=== PATIENT | female | born 1960 | race Caucasian/White ===

== ENCOUNTER 2023-12-13 14:59 | Outpatient (CLI) | payer OTHER, SELFPAY ==
--- NOTE | 2023-12-13 15:30 | MR_ITS ---
[address] [address] Phone:?[phone] Fax:?[phone] Referring Physician Information: Shanell Aguilar [address] [facility] [address] Phone:?[phone] Fax:?[phone] Patient:Alberto Mendez D.O.B:?1960 Sex:?Female Phone:?[phone] [facility] MRN:?[id number] Exam Date:?12/13/2023 EXAM: MRI of the LEFT KNEE, without contrast CLINICAL INFORMATION: Female, 63 years old, with left knee pain. INDICATION: Evaluate for meniscal tear. PRIOR SURGERY: None reported. PLAIN FILMS: Knee radiographs dated 11/30/2023. COMPARISONS: No prior MRIs available. TECHNICAL INFORMATION: Using a 1.5T MR scanner and a localizing surface coil: sagittals: PD, PDFS coronals: PD, T2FS axials: PD, PDFS SEDATION: None CONTRAST: None FINDINGS: Knee joint: Effusion: Small left knee effusion. Popliteal cyst: Small Johnson cyst, which appears to have ruptured superiorly. Loose bodies: None. Subcutaneous and extra-articular soft tissues: Unremarkable. Ligaments: ACL: Intact ACL anteromedial and posterolateral bundles, without sprain or tear. PCL: Intact PCL, without acute or chronic injury. MCL: Intact MCL superficial and deep layers, without injury. LCL: Intact LCL, without injury. Posterolateral corner: No posterolateral corner soft tissue injury. Popliteus, biceps femoris, iliotibial band, popliteofibular ligament and lateral gastrocnemius are intact. Posteromedial corner: No posteromedial corner soft tissue injury. Semimembranosus, pes anserine tendons and posterior oblique ligament are without injury, tendinopathy or bursitis. Extensor mechanism: Patellar tendon: Intact, without tendinopathy. Quadriceps tendon: Intact, without tendinopathy. Retinacula: Medial and lateral retinacula are intact. Fat pads: Moderate localized edema is present in the superolateral aspect of Hoffa's fat pad (sagittal PDFS series 6 image 19 and axial T2FS series 4 image 15). Medial compartment: Medial meniscus: Mixed apical free edge and undersurface horizontal/radial tearing extending from the apical free edge of the posterior horn to the periphery of the posterior root is present over a length of 1.7 cm (axial T2FS series 4 image 21 and sagittal PDFS series 6 images 7-11). This tear involves approximately 50% of the meniscal thickness. Meniscal extrusion measures 4 mm. No parameniscal cyst. Medial femoral condyle & tibial plateau: Broad-based grade II/III chondromalacia throughout the central, weightbearing aspect of the medial compartment, without reactive osseous changes. Lateral compartment: Lateral meniscus: Intrasubstance degeneration and low-grade partial tearing of the lateral meniscal posterior root is present over a length of 9 mm (sagittal PDFS series 6 images 14-16). No meniscal extrusion or parameniscal cyst. Apical free edge fraying of the body segment is also present. Lateral femoral condyle: No chondromalacia or osteochondral abnormality. Lateral tibial plateau: No chondromalacia or osteochondral abnormality. Patellofemoral joint: Patella: Broad-based grade II chondromalacia of the medial facet and median ridge, with minimal marginal osteophytosis. Trochlea: Broad-based mild grade II chondromalacia of the medial facet and central sulcus. Proximal tibiofibular joint: Unremarkable, without evidence of ligament sprain injury, joint effusion or adjacent marrow edema. Bones: No stress/occult fractures or other marrow edema/pathology. IMPRESSION: 1. Apical free edge and undersurface horizontal/radial tearing of the medial meniscus extending from the apical free edge of the posterior horn to the periphery of the posterior root over a length of 1.7 cm, with 4 mm of meniscal extrusion. 2. Mild osteoarthritis of the medial compartment. 3. Intrasubstance degeneration and low-grade partial tearing of the lateral meniscal posterior root measuring 9 mm. 4. Minimal osteoarthritis of the patellofemoral compartment. 5. Patellar tendon lateral femoral condyle friction syndrome. 6. Small knee joint effusion with a small Johnson cyst that appears to have ruptured superiorly. 7. No cruciate or collateral ligament sprain/tear. BC Electronically signed on 12/18/2023 2:18:00 PM by Alexis Resendiz M.D.
== END 2023-12-13 15:00 | disposition home or self-care (01) ==
LOC: MRI 15:01
PROVIDERS: PCP Family Medicine; Visit Provider Physician Assistant
DX: M25.562 Pain in left knee (principal); S83.222A Peripheral tear of medial meniscus, current injury, left knee, initial encounter; M17.12 Unilateral primary osteoarthritis, left knee; M25.462 Effusion, left knee
CPT/HCPCS: 73721

== ENCOUNTER 2025-06-02 06:57 | Day surgery (SDC) | payer OTHER, SELFPAY ==
[2025-06-02] VITALS (13 sets, daily range): BP systolic 88–150; BP diastolic 54–106; PULSE 49–67; RESP 16; TEMP 36.4–37; O2SAT 94–100; BMI 18.8
[2025-06-02] MEDS: SODIUM CHLORIDE 0.9 % (FLUSH) 10 ML SYRINGE IVF (07:22)
[2025-06-02] MEDS: LACTATED RINGERS 1000 ML 1,000 ML 100 ML IV ×2 (07:22→09:53)
--- NOTE | 2025-06-02 09:18 | SUR.OPER ---
PATIENT QUESTIONS ANSWERED SATISFACTORILY PREOPERATIVELY.? PATIENT BROUGHT TO OR #4 PER CART.? Patient positioned supine on OR # bed.? The perioperative?team supported arms bilaterally on arm boards.? Final approval of positioning by surgeon.? CONTINUOUS IRRIGATION OF THE LEFT KNEE DURING THE PROCEDURE WITH NACL.
[2025-06-02] MEDS: BUPIVACAINE 0.25% 30 ML INJECTION (09:20)
--- NOTE | 2025-06-02 09:29 | PM.ORPRC ---
Procedure Note Date of procedure: 06/02/25 Procedure: PREOPERATIVE DIAGNOSIS: Left knee medial and lateral meniscus tear POSTOPERATIVE DIAGNOSIS: Left knee medial and lateral meniscus tear NAME OF OPERATION: Left knee arthroscopic partial medial meniscectomy SURGEON: Tristen Aceves MD ADULT MANAGER: ALISON Dinh ANESTHESIA: Spinal ESTIMATED BLOOD LOSS: 0 mL COMPLICATIONS: None SPECIMENS: None DRAINS: None PREOPERATIVE ANTIBIOTICS: Ancef 1 gram INDICATIONS: The patient is a 64-year-old with a history of left knee medial pain. MRI scan is consistent with a medial and lateral meniscus tear. Despite appropriate nonoperative management, including activity modification, antiinflammatories, [id number] pain medication, bracing, physical therapy, and injections they continue to have pain and disability. Operative intervention was offered. The risks, benefits and expected outcomes were discussed in detail. These included but were not limited to: Infection, bleeding, injury to blood vessel or nerve, venous thromboembolism. All questions were answered to their satisfaction. PROCEDURE: Spinal anesthesia was administered. The patient was placed supine on the operating room table. The left lower extremity was prepped and draped in the usual sterile fashion. The limb was exsanguinated with the Humberto bandage. The pneumatic tourniquet was inflated to 300 mmHg. A standard anterolateral portal was established. The arthroscope was introduced. The working portal was established anteromedially. Diagnostic arthroscopy was performed with findings as follows: The suprapatellar pouch is normal. Articular surface on the patella shows diffuse grade 2/3 change. Articular surface on the trochlea is normal. The medial gutter is normal. The medial compartment shows diffuse grade 3 change on the medial femoral condyle, grade 2 change on the medial tibial plateau. The medial meniscus has a complex degenerative tear of the posterior horn, into the midbody. This consists of a radial tear from the leading edge of the posterior horn, nearly to the capsule. This essentially detach is the medial meniscus from the posterior tibia. However, the rest of the posterior horn is quite poor quality tissue. There is a horizontal cleavage tear of the posterior horn, into the midbody. The notch shows the ACL to be intact. The lateral compartment shows normal articular cartilage on the lateral femoral condyle and lateral tibial plateau. The lateral meniscus has some degenerative fraying of the leading edge of the midbody and posterior horn. The posterior root is intact. The lateral gutter is normal. The posterior horn of the medial meniscus was debrided to a stable base using a combination of sharon through both portals. Unstable chondral flaps on the medial femoral condyle and patella were debrided with the shaver. Arthroscopic instruments were removed, the portal sites were Steri-Stripped closed, the knee was infiltrated with 30 mL of 0.25% Marcaine without epinephrine. A dry dressing was applied, the tourniquet was released. Sponge and needle counts were correct x 2. The patient tolerated the procedure well. There were no apparent complications. They were carefully transferred to the hospital bed and taken to the postanesthesia care unit in satisfactory condition. PLAN: The patient will be discharged to home. They may weightbear as tolerates. Range of motion will be unrestricted. They will follow up in the office next week for a wound check.
--- NOTE | 2025-06-02 09:42 | P.ANES_ITS ---
Anesthesia Charges Start Date/Time Anesthesia Start Date: 06/02/25 Anesthesia Start Time: 08:32 Stop Date/Time Anesthesia Stop Date: 06/02/25 Anesthesia Stop Time: 09:34 Coding CPT Codes CPT Codes: ANESTH KNEE JOINT SURGERY - 48055 ([id number]) QK - ASSISTANT PROFESSOR SURGICAL TECHNOLOGY 2-4 CNCRNT ANES PROC, QX - COMMERCIAL REAL ESTATE MANAGER SVJohn W/ MED DIRECTION
--- NOTE | 2025-06-02 09:42 | W.ANESCHARGE ---
Anesthesia Charges Start Date/Time Anesthesia Start Date: 06/02/25 Anesthesia Start Time: 08:32 Stop Date/Time Anesthesia Stop Date: 06/02/25 Anesthesia Stop Time: 09:34 Coding CPT Codes CPT Codes: ANESTH KNEE JOINT SURGERY - 83972 ([id number]) QK - LINTING MACHINE OPERATOR 2-4 CNCRNT ANES PROC, QX - INSPECTOR PURCHASED PARTS SVJohn W/ MED DIRECTION
--- NOTE | 2025-06-02 10:43 | P.ANES_ITS ---
Anesthesia Charges Start Date/Time Anesthesia Start Date: 06/02/25 Anesthesia Start Time: 08:32 Stop Date/Time Anesthesia Stop Date: 06/02/25 Anesthesia Stop Time: 09:34 Coding CPT Codes CPT Codes: ANESTH KNEE JOINT SURGERY - 29663 ([id number]) QX - CYTOLOGIST SVC W/ MD MED DIRECTION, QK - ASSET ADMINISTRATOR 2-4 CNCRNT ANES PROC, P2 - PATIENT W/MILD SYST DISEASE
--- NOTE | 2025-06-02 10:43 | W.ANESCHARGE ---
Anesthesia Charges Start Date/Time Anesthesia Start Date: 06/02/25 Anesthesia Start Time: 08:32 Stop Date/Time Anesthesia Stop Date: 06/02/25 Anesthesia Stop Time: 09:34 Coding CPT Codes CPT Codes: ANESTH KNEE JOINT SURGERY - 07069 ([id number]) QX - PROMOTIONS INTERN SVC W/ MD MED DIRECTION, QK - MANAGER ERP 2-4 CNCRNT ANES PROC, P2 - PATIENT W/MILD SYST DISEASE
== END 2025-06-02 11:37 | disposition home or self-care (01) ==
LOC: OR 06:57
PROVIDERS: PCP Family Medicine; Visit Provider Orthopaedic Surgery
PROC: (CPT 29882; principal; 2025-06-02 09:00)
DX: M23.222 Derangement of posterior horn of medial meniscus due to old tear or injury, left knee (principal); M23.252 Derangement of posterior horn of lateral meniscus due to old tear or injury, left knee
CPT/HCPCS: 29880; 01400; J0665; J0690; J1100; J2250; J2405; J2704; J3010; J7120